=== PATIENT | male | born 1955 | race Caucasian/White ===

== ENCOUNTER 2019-12-25 10:36 | Outpatient (CLI) | payer MEDICARE, SELFPAY ==
[2019-12-25 10:54] LABS: Hematocrit 41.7 % (40.0-54.0); Hemoglobin 14.5 g/dL (14.0-18.0); Mean Corpuscular HGB Conc 34.8 g/dL (32.0-36.0); Mean Corpuscular Hemoglobin 31.4 pg (27.0-31.0); Mean Corpuscular Volume 90.3 fL (78.0-102.0); Platelet Count Result 238 K/mm3 (150-420); Red Blood Count 4.62 M/mm3 (4.70-6.10); Red Cell Distribution Width 12.3 % (11.6-14.4); White Blood Count 6.1 K/mm3 (4.8-10.8)
[2019-12-25 11:49] LABS: Alanine Aminotransferase 29 U/L (16-63); Albumin Level 3.9 g/dL (3.4-5.0); Alkaline Phosphatase 94 U/L (46-116); Anion Gap 10.3 mmol/L (7-16); Aspartate Amino Transferase 20 U/L (15-37); Bilirubin,Total 0.5 mg/dL (0.00-1.00); Blood Urea Nitrogen 26 mg/dL (7-18); Calcium 8.4 mg/dL (8.5-10.1); Carbon Dioxide 29 mmol/L (21-32); Chloride 106 mmol/L (98-108); Cholesterol 156 mg/dL (0-200); Estimated Glomerular Filt Rate > 60; Glucose 89 mg/dL (70-99); HDL Direct 32 mg/dL (40-60); LDL Cholesterol Calculated 99 mg/dL (<130); Osmolality Calculated 295 mOsm/kg (285-295); Potassium 4.3 mmol/L (3.5-5.1); Sodium 141 mmol/L (136-145); Total Protein 6.4 g/dL (6.4-8.2); Triglycerides 126 mg/dL (0-150)
[2019-12-28 10:34] LABS: Levetiracetam Keppra 40.5 mcg/mL (12.0-46.0)
== END 2019-12-25 10:37 | disposition home or self-care (01) ==
LOC: CHSLAB 10:43
PROVIDERS: PCP Nurse Practitioner Family; Visit Provider Nurse Practitioner Family
DX: I10 Essential (primary) hypertension (principal); E11.9 Type 2 diabetes mellitus without complications; G40.909 Epilepsy, unspecified, not intractable, without status epilepticus; I25.2 Old myocardial infarction; R94.6 Abnormal results of thyroid function studies; R53.83 Other fatigue
CPT/HCPCS: 36415; 80053; 80061; 80177; 83036; 84443; 85027

== ENCOUNTER 2021-01-15 15:43 | Outpatient (CLI) | payer MEDICARE, SELFPAY ==
[2021-01-15 16:35] LABS: Alanine Aminotransferase 30 U/L (16-63); Albumin Level 3.7 g/dL (3.4-5.0); Alkaline Phosphatase 108 U/L (46-116); Anion Gap 10 mmol/L (8-16); Aspartate Amino Transferase 14 U/L (15-37); Bilirubin,Total 0.4 mg/dL (0.00-1.00); Blood Urea Nitrogen 21 mg/dL (7-18); Calcium 8.5 mg/dL (8.5-10.1); Carbon Dioxide 26 mmol/L (21-32); Chloride 105 mmol/L (98-108); Estimated Glomerular Filt Rate > 60; Glucose 82 mg/dL (70-99); Osmolality Calculated 294 mOsm/kg (285-295); Potassium 4.6 mmol/L (3.5-5.1); Sodium 141 mmol/L (136-145); Total Protein 6.3 g/dL (6.4-8.2)
[2021-01-18 05:29] LABS: Levetiracetam Keppra 25.1 mcg/mL (12.0-46.0)
== END 2021-01-15 15:44 | disposition home or self-care (01) ==
LOC: CHSLAB 15:47
PROVIDERS: PCP Nurse Practitioner Family; Visit Provider Nurse Practitioner Family
DX: E11.9 Type 2 diabetes mellitus without complications (principal); G40.909 Epilepsy, unspecified, not intractable, without status epilepticus
CPT/HCPCS: 36415; 80053; 80177; 83036

== ENCOUNTER 2021-07-27 08:02 | Emergency (ER) | payer MEDICARE, SELFPAY ==
[2021-07-27 08:21] VITALS: BP 185/98; PULSE 70; RESP 18; TEMP 35.7; O2SAT 96
--- NOTE | 2021-07-27 08:54 | ED.EYEPROB ---
HPI - Eye Problem General Chief complaint: Eye Problems Stated complaint: POSSIBLE EYE INFECTION Time Seen by Provider: 07/27/21 08:04 Source: patient and RN notes reviewed Mode of arrival: ambulatory Limitations: no limitations History of Present Illness chief complaint: eye redness and other (eyelids stickiness x 2 days in the AM) Onset (ago): day(s) (2) Onset description: gradual Location: right eye Eye Symptoms: redness, foreign body sensation and discharge Place: home Mechanism: none Severity: mild Severity scale (1-10): 3 If Pain, Quality: burning Treatments Prior to Arrival: none Related Data Home Medications Medication Instructions Recorded Confirmed ipratropium bromide 0.02 % 2.5 ml INHALATION Q6H PRN 10/09/19 01/02/20 solution for inhalation Allergies Allergy/AdvReac Type Severity Reaction Status Date / Time Penicillins Allergy Intermediate Rash Verified 08/11/21 14:20 Review of Systems Review of Systems: All systems reviewed & are unremarkable except as noted in HPI and below Eyes: Eyes: Reports photophobia PMFSH Past Medical History Medical History Conjunctivitis COPD (chronic obstructive pulmonary disease) GERD (gastroesophageal reflux disease) HTN (hypertension) Myocardial infarct, old 12/2015 Obesity Seizure disorder Type 2 diabetes mellitus Vitamin B12 deficiency anemia Vitamin D deficiency Surgical History Surgical History History of cataract removal with insertion of prosthetic lens Hx of right heart catheterization Family History Family History Father Acute myocardial infarction Brother Family history of type 2 diabetes mellitus Acute myocardial infarction Mother , 67 No problems noted. Social History Social History Smoking packs per day: 1 Smoking cigarettes per day: 20.0 Years smoked: 30 Smoking pack-years: 30.00 Smoking status: Former smoker Tobacco type: cigarettes Smoking end date: 07/25/02 Exam Const: General: no acute distress and alert Nutritional Appearance: well nourished Orientation/consciousness: patient oriented x3 Limitations: no limitations HENMT: Head: normal to inspection Ears: external ears normal and TM's normal bilaterally General nose exam: Normal external nose present and Normal nares present Face and sinus: normal facial exam Mouth: Yes lip normal and Yes moist mucous membranes Throat: posterior oropharynx normal Eyes: Pupils: Equal, round and reactive pupils present Other: right scleral injection, minimal lid discharge Neck: Neck: normal visual inspection Chest: Chest palpation & inspection: normal inspection of the chest Resp: Effort & Inspection: normal respiratory effort Auscultation: clear to auscultation bilaterally Cardio: Rate: regular rate Rhythm: regular rhythm GI: Auscultation: normal bowel sounds : General: Yes bladder normal to palpation and Yes no CVA tenderness Male General Exam: Yes normal external exam Back/Spine/Pelvis: Back: no CVA tenderness Skin: General skin exam: normal color Rashes: no rashes Neuro: General: patient oriented x3, moves all extremities, no meningeal signs, no focal motor deficits and CN's II-XI intact bilaterally Extrem: General: normal to inspection and no pedal edema Psych: Appearance: grossly normal and well kempt Mental Status: mental status grossly normal Affect: normal affect Thought content: Yes Normal thought content present Course Course Emergency Course: Pt was stable in the ED with less eye discomfort. Reevaluation(s) Reevaluation #1: BP was moderated. Date: 07/27/21 Time: 08:57 Date: 07/27/21 Time: 08:57 Vital Signs Vital signs: Vital Signs Temperature 35.7 C L 07/27/21 08:21 Pulse Rate 70
[2021-07-27] MEDS: ERYTHROMYCIN OPHTH OINTMENT 3.5 GM TUBE 1 APPLIC RIGHT EYE (09:02)
--- NOTE | 2021-07-27 09:06 | PC.NURSE ---
Dr. Uriostegui notified of BP of 155/103. Verbal order received to give 0.2 mg of clonidine.
[2021-07-27] MEDS: cloNIDine HCL 0.2 MG TABLET PO (09:14)
[2021-07-27 09:32] VITALS: BP 156/94; PULSE 64; RESP 18; O2SAT 96
== END 2021-07-27 09:36 | disposition home or self-care (01) ==
PROVIDERS: Emergency Provider Emergency Medicine; PCP Nurse Practitioner Family
DX: B30.9 Viral conjunctivitis, unspecified (principal); I10 Essential (primary) hypertension; Z87.891 Personal history of nicotine dependence; J44.9 Chronic obstructive pulmonary disease, unspecified; K21.9 Gastro-esophageal reflux disease without esophagitis; E11.9 Type 2 diabetes mellitus without complications
CPT/HCPCS: 99283; A9270

== ENCOUNTER 2021-09-15 06:58 | Outpatient (CLI) | payer MEDICARE, SELFPAY ==
[2021-09-15 07:15] LABS: Hematocrit 41.7 % (37.0-46.0); Hemoglobin 13.5 g/dL (12.4-15.3); Mean Corpuscular HGB Conc 32.4 g/dL (32.0-36.0); Mean Corpuscular Hemoglobin 29.7 pg (27.0-31.0); Mean Corpuscular Volume 91.9 fL (78.0-102.0); Mean Platelet Volume 9.7 fl (8.7-11.0); Platelet Count Result 233 K/mm3 (150-420); Red Blood Count 4.54 M/mm3 (4.70-6.10); Red Cell Distribution Width 13.2 % (11.6-14.4); White Blood Count 5.8 K/mm3 (4.8-10.8)
[2021-09-15 08:21] LABS: Hemoglobin A1C 5.7 % (<5.7)
[2021-09-15 08:45] LABS: Alanine Aminotransferase 24 U/L (16-63); Albumin Level 3.6 g/dL (3.4-5.0); Alkaline Phosphatase 207 U/L (46-116); Anion Gap 10 mmol/L (8-16); Aspartate Amino Transferase 15 U/L (15-37); Bilirubin,Total 0.4 mg/dL (0.00-1.00); Blood Urea Nitrogen 15 mg/dL (7-18); Calcium 8.8 mg/dL (8.5-10.1); Carbon Dioxide 26 mmol/L (21-32); Chloride 107 mmol/L (98-108); Cholesterol 154 mg/dL (0-200); Estimated Glomerular Filt Rate > 60; Glucose 117 mg/dL (70-99); HDL Direct 35 mg/dL (40-60); LDL Cholesterol Calculated 95 mg/dL (<130); Osmolality Calculated 297 mOsm/kg (285-295); Potassium 4.5 mmol/L (3.5-5.1); Sodium 143 mmol/L (136-145); Total Protein 6.8 g/dL (6.4-8.2); Triglycerides 121 mg/dL (0-150); Vitamin B12 188 pg/mL (193-986)
[2021-09-15 11:00] LABS: Creatinine Urine 71.21 mg/dL (40-278); MALB Creatinine Ratio 18.2 mg/g (0-30); Microalbumin Urine Random < 13.0 mg/L
[2021-09-17 14:11] LABS: Vitamin D 25 Hydroxy 27 ng/mL (30-100)
== END 2021-09-15 06:59 | disposition home or self-care (01) ==
LOC: CHSLAB 07:02
PROVIDERS: PCP Nurse Practitioner Family; Visit Provider Nurse Practitioner Family
DX: E11.9 Type 2 diabetes mellitus without complications (principal); I10 Essential (primary) hypertension; E53.8 Deficiency of other specified B group vitamins; E55.9 Vitamin D deficiency, unspecified; Z79.899 Other long term (current) drug therapy
CPT/HCPCS: 36415; 80053; 80061; 82043; 82306; 82607; 83036; 85027

== ENCOUNTER 2023-02-10 09:36 | Outpatient (CLI) | payer MEDICARE, SELFPAY ==
--- NOTE | ~2023-02-10 | XR_ITS ---
AP and lateral views of the right hip Clinical history: Pain Findings: No acute fracture or dislocation is seen. Osseous alignment is anatomic. There is mild dege nerative change of the right hip joint. Right SI joint appears unremarkable. Soft tissues are unremar kable. Impression: Mild degenerative change of the right hip joint. Reviewed, dictated and finalized at location . Impression: Mild degenerative change of the right hip joint.
--- NOTE | ~2023-02-10 | XR_ITS ---
AP and lateral views of the left hip Clinical history: Pain Findings: No acute fracture or dislocation is seen. Osseous alignment is anatomic. There is mild left hip joint degenerative change. Left SI joint are unremarkable. Soft tissues are unremarkable. Impression: Mild left hip joint degenerative change. Reviewed, dictated and finalized at [facility]. Impression: Mild left hip joint degenerative change.
[2023-02-10 10:00] LABS: Basophils Absolute Auto 0.07 K/mm3 (0.00-0.10); Basophils Percent Auto 1.2 % (0.0-1.0); Eosinophils Absolute Auto 0.26 K/mm3 (0.02-0.50); Eosinophils Percent Auto 4.4 % (1.0-6.0); Hematocrit 41.1 % (37.0-46.0); Hemoglobin 13.8 g/dL (12.4-15.3); Immature Granulocyte Absolute 0.03 K/mm3 (0.00-0.00); Immature Granulocyte Percent A 0.5 % (0.0-0.0); Lymphocytes Absolute Auto 1.42 K/mm3 (1.10-4.50); Lymphocytes Percent Auto 24.2 % (18.0-42.0); Mean Corpuscular HGB Conc 33.6 g/dL (32.0-36.0); Mean Corpuscular Hemoglobin 30.9 pg (27.0-31.0); Mean Corpuscular Volume 91.9 fL (78.0-102.0); Mean Platelet Volume 9.7 fl (8.7-11.0); Monocytes Absolute Auto 0.51 K/mm3 (0.10-0.90); Monocytes Percent Auto 8.7 % (2.0-11.0); Neutrophils Absolute Auto 3.6 K/mm3 (1.7-7.2); Platelet Count Result 230 K/mm3 (150-420); Red Blood Count 4.47 M/mm3 (4.70-6.10); Red Cell Distribution Width 12.7 % (11.6-14.4); White Blood Count 5.9 K/mm3 (4.8-10.8)
[2023-02-10 10:25] LABS: Hemoglobin A1C 5.8 % (<5.7)
[2023-02-10 10:51] LABS: Alanine Aminotransferase 23 U/L (16-63); Albumin Level 3.6 g/dL (3.4-5.0); Alkaline Phosphatase 135 U/L (46-116); Anion Gap 10 mmol/L (8-16); Aspartate Amino Transferase 16 U/L (15-37); Bilirubin,Total 0.5 mg/dL (0.00-1.00); Blood Urea Nitrogen 18 mg/dL (7-18); Calcium 8.6 mg/dL (8.5-10.1); Carbon Dioxide 24 mmol/L (21-32); Chloride 108 mmol/L (98-108); Cholesterol 147 mg/dL (0-200); Estimated Glomerular Filt Rate > 60; Glucose 98 mg/dL (70-99); HDL Direct 33 mg/dL (40-60); LDL Cholesterol Calculated 84 mg/dL (<130); Osmolality Calculated 295 mOsm/kg (285-295); Potassium 4.2 mmol/L (3.5-5.1); Sodium 142 mmol/L (136-145); Total Protein 6.5 g/dL (6.4-8.2); Triglycerides 148 mg/dL (0-150); Vitamin B12 124 pg/mL (193-986)
[2023-02-14 13:03] LABS: Vitamin D 25 Hydroxy 22 ng/mL (30-100)
== END 2023-02-10 09:37 | disposition home or self-care (01) ==
LOC: CHSLAB 09:37
PROVIDERS: PCP Nurse Practitioner Family; Visit Provider Nurse Practitioner Family
DX: M25.561 Pain in right knee (principal); M25.562 Pain in left knee; M25.552 Pain in left hip; M25.551 Pain in right hip; E53.8 Deficiency of other specified B group vitamins; D51.9 Vitamin B12 deficiency anemia, unspecified; E55.9 Vitamin D deficiency, unspecified; I10 Essential (primary) hypertension; E11.9 Type 2 diabetes mellitus without complications; M16.0 Bilateral primary osteoarthritis of hip
CPT/HCPCS: 36415; 73502; 73562; 80053; 80061; 82306; 82607; 83036; 85025

== ENCOUNTER 2024-01-22 11:20 | Emergency (ER) | payer MEDICARE, SELFPAY ==
--- NOTE | ~2024-01-22 | XR_ITS ---
EXAMINATION: XR chest 2V DATE: 01/22/2024 11:50 INDICATION: Productive cough and wheezing TECHNIQUE: PA and lateral views of the chest were obtained. COMPARISON: Chest radiograph dated 11/18/19 FINDINGS: Increased lucency and some architectural distortion in the bilateral upper lung zones consistent with emphysema. Mild increased interstitial pattern along the bilateral lung bases which could be due to associated atelectasis bronchovascular crowding or mild pulmonary edema. The cardiomediastinal silhou ette is normal. Visualized bones and soft tissues are unremarkable. IMPRESSION: 1. Emphysema with increased interstitial pattern in the bilateral lower lungs which could be related to compensatory atelectasis and bronchovascular crowding or mild pulmonary edema. Reviewed, dictated and finalized at location [facility]. IMPRESSION: 1. Emphysema with increased interstitial pattern in the bilateral lower lungs w hich could be related to compensatory atelectasis and bronchovascular crowding or mild pulmonary edema.
[2024-01-22 11:20] VITALS: BP 170/88; PULSE 98; RESP 20; TEMP 36.9; O2SAT 95
[2024-01-22 11:30] VITALS: O2SAT 95
--- NOTE | 2024-01-22 11:33 | ED.URI ---
HPI - URI/Sore Throat General Chief Complaint: Upper Respiratory Infection Stated Complaint: cough; hoarse voice Time Seen by Provider: 01/22/24 11:31 Source: patient Mode of arrival: ambulatory Limitations: no limitations History of Present Illness HPI Narrative: Patient is a 68-year-old male with a cough and congestion of the chest for the past 2 days. His family is worried about RSV with this patient. No chest pain or shortness of breath. Green-yellow phlegm. MD elicited complaint: cough and nasal congestion Onset (ago): day(s) (2) Consistency: constant Severity: mild Pain scale (0-10): 0 Description of mucous: yellow and green Able to tolerate fluids by mouth: Yes Exacerbating factors: nothing Relieving factors: nothing Context: sick contacts Associated symptoms: nasal congestion Treatments prior to arrival: none Related Data Home Medications Medication Instructions Recorded Confirmed ipratropium bromide 0.02 % 2.5 ml inhalation Q6H PRN 10/09/19 02/10/23 solution for inhalation Allergies Allergy/AdvReac Type Severity Reaction Status Date / Time Penicillins Allergy Intermediate Rash Verified 01/22/24 11:28 Review of Systems Review of Systems: All systems reviewed & are unremarkable except as noted in HPI and below Constitutional: Constitutional: Reports no additional constitutional complaints Eyes: Eyes: Reports no additional eye complaints ENT: Reports system reviewed and no additional complaints, except as documented Cardiovascular: Cardiovascular: Reports no additional cardiovascular complaints Respiratory: Respiratory: Reports no additional respiratory complaints Gastrointestinal: Gastrointestinal: Reports no additional gastrointestinal complaints Genitourinary: Genitourinary: Reports no additional male genitourinary complaints Musculoskeletal: Musculoskeletal: Reports no additional musculoskeletal complaints Integumentary/Breasts: Skin/Breast: Reports system reviewed and no additional complaints, except as docu Neurologic: Reports system reviewed and no additional complaints, except as documented Psychiatric: Psychiatric: Reports no additional psychiatric complaints Endocrine: Endocrine: Reports no additional endocrine complaints Hematologic/Lymphatic: Hematologic/Lymphatic: Reports no additional hematologic/lymphatic complaints Allergic/Immunologic: Allergic/Immunologic: Reports no additional allergic/immunologic complaints PMFSH Past Medical History Medical History Conjunctivitis COPD (chronic obstructive pulmonary disease) COPD with acute exacerbation COVID-19 GERD (gastroesophageal reflux disease) HTN (hypertension) Myocardial infarct, old 12/2015 Obesity Seizure disorder Type 2 diabetes mellitus Vitamin B12 deficiency anemia Vitamin D deficiency Surgical History Surgical History History of cataract removal with insertion of prosthetic lens Hx of right heart catheterization Family History Family History Father Acute myocardial infarction Brother Family history of type 2 diabetes mellitus Acute myocardial infarction Lung cancer Mother , 67 No problems noted. 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
[2024-01-22 12:18] LABS: SARS-CoV-2 RNA PCR Positive (Negative)
[2024-01-22 12:20] LABS: Influenza A QL RT-PCR Negative (Negative); Influenza B QL RT-PCR Negative (Negative); RSV RNA, RT-PCR Negative (Negative)
[2024-01-22 12:56] VITALS: BP 146/90; PULSE 88; RESP 18; TEMP 36.4; O2SAT 96
== END 2024-01-22 13:00 | disposition home or self-care (01) ==
PROVIDERS: Emergency Provider Emergency Medicine; PCP Nurse Practitioner Family
DX: U07.1 COVID-19 (principal); J40 Bronchitis, not specified as acute or chronic; J44.9 Chronic obstructive pulmonary disease, unspecified; E78.5 Hyperlipidemia, unspecified; I10 Essential (primary) hypertension; I25.2 Old myocardial infarction; Z87.891 Personal history of nicotine dependence
CPT/HCPCS: 71046; 87637; 99283

== ENCOUNTER 2024-03-08 09:53 | Outpatient (CLI) | payer MEDICARE, SELFPAY ==
[2024-03-08 10:06] LABS: Basophils Absolute Auto 0.07 K/mm3 (0.00-0.10); Eosinophils Absolute Auto 0.39 K/mm3 (0.02-0.50); Eosinophils Percent Auto 5.7 % (1.0-6.0); Hematocrit 41.7 % (37.0-46.0); Hemoglobin 14.2 g/dL (12.4-15.3); Immature Granulocyte Absolute 0.02 K/mm3 (0.00-0.00); Immature Granulocyte Percent A 0.3 % (0.0-0.0); Lymphocytes Absolute Auto 1.77 K/mm3 (1.10-4.50); Lymphocytes Percent Auto 25.8 % (18.0-42.0); Mean Corpuscular HGB Conc 34.1 g/dL (32-36); Mean Corpuscular Hemoglobin 30.7 pg (27.0-31.0); Mean Corpuscular Volume 90.1 fL (78.0-102.0); Mean Platelet Volume 9.5 fl (8.7-11.0); Monocytes Percent Auto 10.2 % (2.0-11.0); Neutrophils Absolute Auto 3.92 K/mm3 (1.70-7.20); Platelet Count Result 230 K/mm3 (150-420); Red Blood Count 4.63 M/mm3 (4.70-6.10); Red Cell Distribution Width 12.7 % (11.6-14.4); White Blood Count 6.9 K/mm3 (4.8-10.8)
[2024-03-08 11:12] LABS: Alanine Aminotransferase 21 U/L (16-63); Albumin Level 3.7 g/dL (3.4-5.0); Alkaline Phosphatase 133 U/L (46-116); Anion Gap 6 mmol/L (4-12); Aspartate Amino Transferase 18 U/L (15-37); Bilirubin,Total 0.6 mg/dL (0.00-1.00); Blood Urea Nitrogen 17 mg/dL (7-18); Calcium 8.5 mg/dL (8.5-10.1); Carbon Dioxide 28 mmol/L (21-32); Chloride 104 mmol/L (98-108); Cholesterol 143 mg/dL (0-200); Estimated Glomerular Filt Rate > 60; Glucose 89 mg/dL (70-99); HDL Direct 38 mg/dL (40-60); LDL Cholesterol Calculated 82 mg/dL (<130); Osmolality Calculated 286 mOsm/kg (285-295); Potassium 4.1 mmol/L (3.5-5.1); Sodium 138 mmol/L (136-145); Total Protein 6.5 g/dL (6.4-8.2); Triglycerides 114 mg/dL (0-150)
[2024-03-08 11:25] LABS: Vitamin B12 169 pg/mL (193-986)
[2024-03-08 13:34] LABS: Hemoglobin A1C 5.8 % (<5.7)
[2024-03-09 10:09] LABS: Vitamin D 25 Hydroxy 33 ng/mL (30-100)
== END 2024-03-08 09:54 | disposition home or self-care (01) ==
PROVIDERS: PCP Nurse Practitioner Family; Visit Provider Nurse Practitioner Family
DX: E55.9 Vitamin D deficiency, unspecified (principal); Z79.899 Other long term (current) drug therapy; E11.9 Type 2 diabetes mellitus without complications; Z13.6 Encounter for screening for cardiovascular disorders; D51.9 Vitamin B12 deficiency anemia, unspecified; I10 Essential (primary) hypertension
CPT/HCPCS: 36415; 80053; 80061; 82306; 82607; 83036; 85025

== ENCOUNTER 2024-04-08 08:01 | Emergency (ER) | payer MEDICARE, SELFPAY ==
--- NOTE | 2024-04-08 08:04 | ED.GENADULT ---
HPI - General Adult General Chief complaint: Eye Problems Stated complaint: eye problem Time Seen by Provider: 04/08/24 08:04 Source: patient Mode of arrival: ambulatory Limitations: no limitations History of Present Illness HPI narrative: 69-year-old white male complains of red right eye did itchy with clear discharge for the last 2 days. patient had a conjunctivitis of the left eye and was treated with an antibiotic ointment he said he just treated the left eye only. Says his left eye is okay. He has a some blurred vision in the right eye. Denies any pain. He is eating drinking voiding and stooling fine without cough fever sore throat runny nose rash or itching bleeding or bruising dizziness or lightheadedness weakness or any other complaints. He had cataract surgery on both eyes many many years ago. Does not wear glasses. Related Data Home Medications Medication Instructions Recorded Confirmed ipratropium bromide 0.02 % 2.5 ml inhalation Q6H PRN 10/09/19 04/08/24 solution for inhalation Shortness Of Breath Allergies Allergy/AdvReac Type Severity Reaction Status Date / Time Penicillins Allergy Intermediate Rash Verified 03/08/24 09:30 Review of Systems Review of Systems: All systems reviewed & are unremarkable except as noted in HPI and below PMFSH Past Medical History Medical History Conjunctivitis COPD (chronic obstructive pulmonary disease) COPD with acute exacerbation COVID-19 GERD (gastroesophageal reflux disease) HTN (hypertension) Myocardial infarct, old 12/2015 Obesity Seizure disorder Type 2 diabetes mellitus Vitamin B12 deficiency anemia Vitamin D deficiency Surgical History Surgical History History of cataract removal with insertion of prosthetic lens Hx of right heart catheterization Family History Family History Father Acute myocardial infarction Brother Family history of type 2 diabetes mellitus Acute myocardial infarction Lung cancer Mother , 67 No problems noted. 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 Head normocephalic, atraumatic.? Eyes conjunctiva Injected on the right with some a little right eyelid swelling, sclera nonicteric.? left eye slight yellow discharge conjunctiva a little inflamed. Pupils are 2 mm equal bilateral. Extraocular movements are intact.? Ears externally normal.?Extremities no cyanosis clubbing or edema.? Skin is warm and dry without rashes or lesions.? Neurological patient is alert and oriented x4.? Motor and sensory grossly intact.? Gait is normal. Visual acuity left eye 20/400 -1, right eye 20/100. Course Vital Signs Vital signs: Vital Signs Temperature 36.6 C 04/08/24 08:10 Pulse Rate 69 04/08/24 08:10 Respiratory Rate 20 04/08/24 08:10 Blood Pressure 151/92 H 04/08/24 08:10 Pulse Oximetry 96 04/08/24 08:10 Oxygen Delivery Room Air 04/08/24 08:10 Temperature 36.6 C 04/08/24 08:10 Pulse Rate 69 04/08/24 08:10 Respiratory Rate 20 04/08/24 08:10 Blood Pressure 151/92 H 04/08/24 08:10 Pulse Oximetry 96 04/08/24 08:10 Oxygen Delivery Room Air 04/08/24 08:10 Medical Decision Making MDM Narrative Medical decision making narrative: ? Patient placed in room: One ? History and physical was pe
[2024-04-08 08:10] VITALS: BP 151/92; PULSE 69; RESP 20; TEMP 36.6; O2SAT 96
[2024-04-08] MEDS: FLUORESCEIN SOD 1 MG/STRIP EACH EYE (08:14)
[2024-04-08] MEDS: DACRIOSE EYE IRRIGATION 118 ML BOTTLE 50 ML RIGHT EYE (08:15)
--- NOTE | 2024-04-08 08:15 | PC.NURSE ---
Dr Koehler at the bedside
--- NOTE | 2024-04-08 08:40 | PC.NURSE ---
Eye doctors list given to patient
== END 2024-04-08 08:48 | disposition home or self-care (01) ==
PROVIDERS: Emergency Provider Emergency Medicine; PCP Nurse Practitioner Family
DX: H10.9 Unspecified conjunctivitis (principal); J44.9 Chronic obstructive pulmonary disease, unspecified; I10 Essential (primary) hypertension; I25.2 Old myocardial infarction; E11.9 Type 2 diabetes mellitus without complications; Z87.891 Personal history of nicotine dependence
CPT/HCPCS: 99283; A9270

== ENCOUNTER 2024-06-08 10:14 | Outpatient (CLI) | payer MEDICARE, SELFPAY ==
--- NOTE | ~2024-06-08 | CT_ITS ---
EXAMINATION:CT lung screening DATE: 06/08/2024 10:43 INDICATION: Personal history of nicotine dependence. TECHNIQUE: Computed tomography (CT) of the chest was performed without intravenous contrast. Automate d exposure control and iterative reconstruction technique were employed. The dose-length product (DLP ) was 164.83 mGy-cm. COMPARISON: Chest CT 10/14/2017 FINDINGS: There is mild scarring at the lung apices. There is severe emphysema. Calcified bilateral l aleks nodules and calcified right hilar lymph nodes are consistent with old granulomatous disease. Ther e are airspace opacities in anterior segment right upper lobe, likely pneumonia. No pleural effusion. The heart size is normal. There are coronary artery calcifications. No pericardial effusion. There i s a small sliding hernia. There are cysts in left kidney measuring up to 4.3 cm . There is mild thora cic spondylosis. IMPRESSION: 1. Lung-RADS category 0: Incomplete. Noncontrast low-dose chest CT is recommended in 1-3 months due t o the likely pneumonia in right upper lobe. Reviewed, dictated and finalized at location [facility]. CHIEF IMPRESSION: 1. Lung-RADS category 0: Incomplete. Noncontrast low-dose chest CT is recommend ed in 1-3 months due to the likely pneumonia in right upper lobe.
== END 2024-06-08 10:15 | disposition home or self-care (01) ==
LOC: CHSIMG 10:17
PROVIDERS: PCP Nurse Practitioner Family; Visit Provider Nurse Practitioner Family
DX: Z12.2 Encounter for screening for malignant neoplasm of respiratory organs (principal); Z87.891 Personal history of nicotine dependence
CPT/HCPCS: 71271

== ENCOUNTER 2024-07-13 09:50 | Outpatient (CLI) | payer MEDICARE, SELFPAY ==
--- NOTE | ~2024-07-13 | CT_ITS ---
CT Scan of the Chest without Contrast: Clinical Indication: Lung cancer screening, nicotine dependence Technique: Contiguous sections were acquired throughout the chest without intravenous contrast. Dose reduction technique was used on this scan by utilizing automated exposure control and iterative recon struction technique. The dose-length product (DLP) was 156.99 mGy-cm. COMPARISON: 06/08/2024 Findings: There is no evidence of any significant mediastinal, hilar or axillary lymphadenopathy. The mediastin al soft tissues appear normal. There is no evidence of pleural or pericardial effusion. Moderate to advanced emphysema present. Stable airspace consolidation in the anteromedial right upper lobe. Images through the upper abdomen reveal no abnormalities. Impression: Stable airspace consolidation anteromedial right upper lobe. Findings could reflect pneumonia. Underl woody pulmonary nodule not excluded. Recommend additional short-term follow-up CT after interval thera py in 1-3 months. Moderate to advanced emphysema. Reviewed, dictated and finalized at [facility]. T MAKER Impression: Stable airspace consolidation anteromedial right upper lobe. Findings could ref lect pneumonia. Underlying pulmonary nodule not excluded. Recommend additional short-term follow-up CT after interval therapy in 1-3 months. Moderate to advanced emphysema.
== END 2024-07-13 09:51 | disposition home or self-care (01) ==
PROVIDERS: PCP Nurse Practitioner Family; Visit Provider Nurse Practitioner Family
DX: Z12.2 Encounter for screening for malignant neoplasm of respiratory organs (principal); J43.9 Emphysema, unspecified; R91.8 Other nonspecific abnormal finding of lung field; Z87.891 Personal history of nicotine dependence
CPT/HCPCS: 71271

== ENCOUNTER 2025-07-05 10:33 | Outpatient (CLI) | payer MEDICARE, SELFPAY ==
[2025-07-05 10:51] LABS: Hematocrit 43.1 % (37.0-46.0); Hemoglobin 14.1 g/dL (12.4-15.3); Mean Corpuscular HGB Conc 32.7 g/dL (32-36); Mean Corpuscular Hemoglobin 29.7 pg (27.0-31.0); Mean Corpuscular Volume 90.7 fL (78.0-102.0); Platelet Count Result 226 K/mm3 (150-420); Red Blood Count 4.75 M/mm3 (4.70-6.10); White Blood Count 7.5 K/mm3 (4.8-10.8)
[2025-07-05 11:08] LABS: Alanine Aminotransferase 24 U/L (6-50); Albumin Level 4.5 g/dL (3.5-5.1); Alkaline Phosphatase 123 U/L (38-126); Anion Gap 10 mmol/L (4-12); Aspartate Amino Transferase 25 U/L (17-59); Bilirubin,Total 0.4 mg/dL (0.2-1.3); Blood Urea Nitrogen 25 mg/dL (9-20); Calcium 9.9 mg/dL (8.4-10.2); Carbon Dioxide 24 mmol/L (22-30); Chloride 110 mmol/L (98-107); Cholesterol 177 mg/dL (0-200); Estimated Glomerular Filt Rate > 60; Glucose 88 mg/dL (65-110); HDL Direct 58 mg/dL; Osmolality Calculated 301 mOsm/kg (285-295); Potassium 5.0 mmol/L (3.4-5.0); Sodium 144 mmol/L (137-145); Total Protein 7.0 g/dL (6.3-8.2); Triglycerides 134 mg/dL (<150)
[2025-07-05 11:12] LABS: Hemoglobin A1C 5.6 % (<5.7)
[2025-07-05 11:39] LABS: Prostate Specific Antigen 1.3 ng/mL (< OR = 4.0); Thyroid Stimulating Hormone Reflex 8.000 uIU/mL (0.465-4.68)
[2025-07-05 12:05] LABS: Free T4 Free Thyroxine Reflex 0.79 ng/dL (0.78-2.19)
== END 2025-07-05 10:34 | disposition home or self-care (01) ==
LOC: CHSLAB 10:36
PROVIDERS: PCP Nurse Practitioner Family; Visit Provider Nurse Practitioner Family
DX: I10 Essential (primary) hypertension (principal); Z13.1 Encounter for screening for diabetes mellitus; Z12.5 Encounter for screening for malignant neoplasm of prostate
CPT/HCPCS: 36415; 80053; 80061; 83036; 84153; 84439; 84443; 84480; 85025; G0103